=== PATIENT | female | born 1955 | race American Indian/Alaskan Native ===

== ENCOUNTER 2016-10-18 22:30 | Emergency (ER) | payer SELFPAY ==
[2016-10-19] MEDS ORDERED: TYLENOL #3 PO ONE (00:28)
--- NOTE | 2016-10-19 00:41 | Emergency Department Report ---
HPI - General Chief Complaint: Extremity Injury, Upper Time Seen by Provider: 10/19/16 00:09 - HPI HPI: Patient is a 60-year-old female presents to ED complaining of right middle finger pain times today. Patient states she was coming out of the house door when she slammed the finger in the door and the finger got caught in the door. Patient states pain and bleeding immediately after incident. Patient states finger looks like it is coming off her finger back. She admits throbbing aching pain in her middle finger. She denies any other symptoms. ED Past Medical Hx - Medications Home Medications: Home Medications Medication Instructions Recorded Confirmed Last Taken Type HYDROcodone/APAP 5-325 [[place] 1 each PO Q6HR PRN #16 tablet 10/19/16 Unknown Rx 5/325] Ibuprofen [Motrin] 600 mg PO Q8H PRN #30 tablet 10/19/16 Unknown Rx ED Review of Systems ROS: Stated complaint: RT HAND THIRD FINGER NAIL INJURY Other details as noted in HPI Constitutional: denies: chills, fever Eyes: denies: eye pain, eye discharge, vision change ENT: denies: ear pain, throat pain Respiratory: denies: cough, shortness of breath, wheezing Cardiovascular: denies: chest pain, palpitations Endocrine: no symptoms reported Gastrointestinal: denies: abdominal pain, nausea, diarrhea Genitourinary: denies: urgency, dysuria, discharge Musculoskeletal: denies: back pain, joint swelling, arthralgia Skin: denies: rash, lesions Neurological: denies: headache, weakness, paresthesias Psychiatric: denies: anxiety, depression Hematological/Lymphatic: denies: easy bleeding, easy bruising Physical Exam - Physical Exam Vital Signs: Vital Signs 10/18/16 22:39 Temperature 98.6 F Pulse Rate 94 H Blood Pressure 130/93 O2 Sat by Pulse 100 Oximetry Physical Exam: GENERAL: Alert and oriented x3, no apparent distress, Normal Gait, atraumatic. HEAD: Head is normocephalic and a-traumatic. LUNGS: Symetrical with respiration, No wheezing, no rales or crackles, CTAB. HEART: S1, S2 present, regular rate and rhythm without murmur, no rubs, no gallops. Non tender to palpation EXTREMITIES/MUSCULOSKELETAL: No cyanosis, clubbing, rash, lesions or edema. Full ROM bilaterally. UE/LE Pulses 2+ bilaterally. The right middle finger nail avulsed ,minimal bleeding noted, mild swelling of the finger NEUROLOGIC: The patient is cooperative with no focal neurologic deficits. . Normal sensation in bilateral upper extremities including fingers, No loss of sensation, SKIN: Warm and dry, No lesions, No ulceration or induration present. ED Course Vital Signs 10/18/16 22:39 Temperature 98.6 F Pulse Rate 94 H Blood Pressure 130/93 O2 Sat by Pulse 100 Oximetry ED Medical Decision Making - Radiology Data Radiology results: report reviewed, image reviewed FINAL REPORT EXAM: XR FINGER(S) 2+V RT HISTORY: fingerpain/avulsed nail/slammed in door COMPARISON: None available. FINDINGS: Three views of the left 3rd finger obtained. There is a tiny avulsive fracture fragment at the distal 3rd phalangeal tuft. Mild narrowing of the interphalangeal joints with hypertrophic spurring. IMPRESSION: Distal 3rd phalangeal tuft fracture. Transcribed By: LMA Dictated By: IVANA MUNOZ MD Electronically Authenticated By: IVANA MUNOZ MD Signed Date/Time: 10/19/16 0216 - Medical Decision Making CC-year-old female presents with false finger ED course: X-ray of the finger obtained X-ray shows Finger cleaned with Betadine Anesthesia was obtained with digital block for cc lidocaine with epi Fingernail was taken off successfully Finger was dressed with triple antibiotic and sterile dressed with gauze dressing Finger splint applied Discussed the patient's rigidity gain 3-4 days for wound check. Discussed nail bed may or may not grow back after couple weeks Discussed to follow up with primary care physician in the long run. Vital signs are normal patient is in no acute distress. Critical care attestation.: If time is entered above; I have spent that time in minutes in the direct care of this critically ill patient, excluding procedure time. ED Disposition Clinical Impression: Avulsed fingernail Qualifiers: Encounter type: initial encounter Qualified Code(s): S61.309A - Unspecified open wound of unspecified finger with damage to nail, initial encounter Phalanx, distal fracture of finger Qualifiers: Encounter type: initial encounter Finger: middle finger Fracture type: closed Fracture alignment: nondisplaced Laterality: right Qualified Code(s): S62.662A - Nondisplaced fracture of distal phalanx of right middle finger, initial encounter for closed fracture Disposition: - TO HOME OR SELFCARE Is pt being admited?: No Does the pt Need Aspirin: No Condition: Stable Instructions: Toenail/Fingernail Removal (ED) Additional Instructions: Return to ED in 2-3 days for a wound check Particular medication as prescribed Prescriptions: HYDROcodone/APAP 5-325 [[place] 5/325] 1 each PO Q6HR PRN #16 tablet PRN Reason: Pain Ibuprofen [Motrin] 600 mg PO Q8H PRN #30 tablet PRN Reason: Pain Referrals: [facility] [Outside] - 3-5 Days [facility] [Outside] - 3-5 Days PRIMARY CARE, [Primary Care Provider] - 3-5 Days JESSIE ALEXANDER MD [Referring] - 3-5 Days NEAL TORRES MD [Staff Physician] - 3-5 Days Forms: Accompanied Note, Work/School Release Form(ED) Time of Disposition: 02:35
[2016-10-19] MEDS ORDERED: TRIPLE ANTIBIOTIC TP ONE (00:51)
[2016-10-19] MEDS ORDERED: SILVER NITRATE TP ONE ×3 (01:12→01:54)
[2016-10-19] MEDS ORDERED: BOOSTRIX IM ONE (01:12)
[2016-10-19 01:56] VITALS: BP 135/89
--- NOTE | 2016-10-19 02:18 | XRay Report ---
FINAL REPORT EXAM: XR FINGER(S) 2+V RT HISTORY: fingerpain/avulsed nail/slammed in door COMPARISON: None available. FINDINGS: Three views of the left 3rd finger obtained. There is a tiny avulsive fracture fragment at the distal 3rd phalangeal tuft. Mild narrowing of the interphalangeal joints with hypertrophic spurring. IMPRESSION: Distal 3rd phalangeal tuft fracture.
== END 2016-10-19 01:56 | disposition home or self-care (01) ==
LOC: ED 22:30
DX: S62.662A Nondisplaced fracture of distal phalanx of right middle finger, initial encounter for closed fracture (principal); S61.202A Unspecified open wound of right middle finger without damage to nail, initial encounter; W22.8XXA Striking against or struck by other objects, initial encounter; Y93.9 Activity, unspecified; Y92.89 Other specified places as the place of occurrence of the external cause; Y99.9 Unspecified external cause status
CPT/HCPCS: 90471; 90715; A6250

== ENCOUNTER 2020-04-30 01:55 | Emergency (ER) | payer MEDICARE, SELFPAY ==
[2020-04-30 02:04] VITALS: BP 149/89
--- NOTE | 2020-04-30 03:06 | Emergency Department Report ---
ED ENT HPI - General Chief complaint: Dental/Oral Stated complaint: TOOTHACHE/MOUTH PAIN Source: patient Mode of arrival: Ambulatory Limitations: No Limitations - History of Present Illness Initial comments: 64-year-old -[place] female presents to the emergency room for a 1 day history of right upper tooth pain. Patient states that she had a broken tooth for a while but had not given her any pain. Then yesterday she started having pain and tenderness to her face. Patient denies any fever chills no nausea no vomiting. Denies any fever chills MD complaint: tooth pain - Related Data Previous Rx's Medication Instructions Recorded Last Taken Type HYDROcodone/APAP 5-325 [[place] 1 each PO Q6HR PRN #16 tablet 10/19/16 Unknown Rx 5/325] Ibuprofen [Motrin] 600 mg PO Q8H PRN #30 tablet 10/19/16 Unknown Rx Clindamycin [Clindamycin CAP] 300 mg PO Q8H 10 Days #30 cap 04/30/20 Unknown Rx Allergies Allergy/AdvReac Type Severity Reaction Status Date / Time No Known Allergies Allergy Verified 10/19/16 00:53 ED Dental HPI - General Chief complaint: Dental/Oral Stated complaint: TOOTHACHE/MOUTH PAIN Source: patient Mode of arrival: Ambulatory Limitations: No Limitations - Related Data Previous Rx's Medication Instructions Recorded Last Taken Type HYDROcodone/APAP 5-325 [[place] 1 each PO Q6HR PRN #16 tablet 10/19/16 Unknown Rx 5/325] Ibuprofen [Motrin] 600 mg PO Q8H PRN #30 tablet 10/19/16 Unknown Rx Clindamycin [Clindamycin CAP] 300 mg PO Q8H 10 Days #30 cap 04/30/20 Unknown Rx Allergies Allergy/AdvReac Type Severity Reaction Status Date / Time No Known Allergies Allergy Verified 10/19/16 00:53 ED Review of Systems ROS: Stated complaint: TOOTHACHE/MOUTH PAIN Other details as noted in HPI ED Past Medical Hx - Past Medical History Previous Medical History?: No - Surgical History Past Surgical History?: No - Social History Smoking Status: Never Smoker Substance Use Type: None - Medications Home Medications: Home Medications Medication Instructions Recorded Confirmed Last Taken Type HYDROcodone/APAP 5-325 [[place] 1 each PO Q6HR PRN #16 tablet 10/19/16 Unknown Rx 5/325] Ibuprofen [Motrin] 600 mg PO Q8H PRN #30 tablet 10/19/16 Unknown Rx Clindamycin [Clindamycin CAP] 300 mg PO Q8H 10 Days #30 cap 04/30/20 Unknown Rx ED Physical Exam - General Limitations: No Limitations General appearance: alert, in no apparent distress - Head Head exam: Present: atraumatic, normocephalic - Eye Eye exam: Present: normal appearance - ENT ENT exam: Present: mucous membranes moist - Expanded ENT Exam Expanded Teeth exam: Present: fractured tooth # (4), dental tenderness # (4). Absent: dental caries, gingival enlargement Throat exam: Positive: normal inspection - Neck Neck exam: Present: normal inspection, full ROM - Respiratory Respiratory exam: Absent: accessory muscle use - Extremities Exam Extremities exam: Present: normal inspection, full ROM - Neurological Exam Neurological exam: Present: alert, oriented X3 - Psychiatric Psychiatric exam: Present: normal affect, normal mood - Skin Skin exam: Present: warm, dry, intact, normal color. Absent: rash ED Course Vital Signs 04/30/20 02:02 Temperature 97.9 F Pulse Rate 104 H Respiratory 18 Rate Blood Pressure 149/89 O2 Sat by Pulse 98 Oximetry ED Medical Decision Making - Medical Decision Making 64-year-old -[place] female presents to the emergency room for a 1 day history of right upper tooth pain. Patient states that she had a broken tooth for a while but had not given her any pain. Then yesterday she started having pain and tenderness to her face. Patient denies any fever chills no nausea no vomiting. Denies any fever chills Rechecked pulse was 92 Patient will be treated with clindamycin for dental abscess. Referral to a dentist was placed on patient's discharge summary. Encourage patient to take Tylenol or ibuprofen for pain management. Critical care attestation.: If time is entered above; I have spent that time in minutes in the direct care of this critically ill patient, excluding procedure time. ED Disposition Clinical Impression: Dental abscess Disposition: - TO HOME OR SELFCARE Is pt being admited?: No Does the pt Need Aspirin: No Condition: Stable Instructions: Dental Abscess, [id number] Additional Instructions: Complete antibiotics as prescribed. Pain medication such as ibuprofen or Tylenol. [facility] Directions [address] [place] [address], [place] [address] Closed Opens 8:30 AMHours or services may vary Prescriptions: Clindamycin [Clindamycin CAP] 300 mg PO Q8H 10 Days #30 cap Referrals: PRIMARY CARE, [Primary Care Provider] - 3-5 Days Forms: Work/School Release Form(ED)
== END 2020-04-30 03:02 | disposition home or self-care (01) ==
LOC: ED 01:55
DX: K04.7 Periapical abscess without sinus (principal); Z79.1 Long term (current) use of non-steroidal anti-inflammatories (NSAID); Z79.2 Long term (current) use of antibiotics; Z79.899 Other long term (current) drug therapy
CPT/HCPCS: 99282